=== PATIENT | female | born 1990 | race Caucasian/White ===

== ENCOUNTER 2017-07-17 23:03 | Inpatient (IN) | payer MEDICAID ==
[~2017-07-17] VITALS: Ht 177.8 cm; Wt 138.3 kg
[2017-07-18 00:35] VITALS: BP 149/86; PULSE 83; TEMP 97.9
[2017-07-18 00:46] LABS: BASO # 0.1 (0.0-0.2); BASO % 0.3 % (0.0-2.0); EOS # 0.1 (0.0-0.7); EOS % 0.6 % (0-4.0); GRAN % 70.8 % (42.2-75.2); HEMATOCRIT 39.5 % (37.0-47.0); HEMOGLOBIN 13.3 g/dl (12.5-16.0); LYMPH # 3.5 (1.2-3.4); LYMPH % 22.8 % (20.0-51.0); MEAN CELL VOLUME 89 fl (80.0-100.0); MEAN CORPUSCULAR HEMOGLOBIN 30 pg (27.0-31.0); MEAN CORPUSCULAR HGB CONC 34 g/dl (33.0-37.0); MEAN PLATELET VOLUME 9.8 fl (7.4-10.4); MONO # 0.8 (0.1-0.6); PLATELET COUNT 279 K/mm3 (130-400); RED BLOOD COUNT 4.45 M/mm3 (4.10-5.30); REDCELL DISTRIBUTION WIDTH-CV 13.2 % (11.5-14.5)
[2017-07-18 00:52] LABS: INR 0.9 (0.8-3.0); PROTHROMBIN TIME 10.3 SECONDS (9.7-12.8)
[2017-07-18 00:55] LABS: ALBUMIN 3.6 gm/dL (3.5-5.0); BILIRUBIN,TOTAL 0.2 mg/dL (0.0-1.0); CALCIUM 8.5 mg/dL (8.4-10.2); CREATININE, serum 0.75 mg/dL (0.52-1.25); POTASSIUM 3.7 mmol/L (3.4-5.0); TOTAL PROTEIN 7.1 gm/dL (6.4-8.2)
[2017-07-18 01:03] LABS: PRE ALBUMIN 26.6 mg/dL (17.6-36.0)
[2017-07-18] MEDS ORDERED: PROAIR HFA0.09 MG/AC IH (01:12)
[2017-07-18] MEDS ORDERED: ADIPEX-P37.5 MG PO (01:14)
[2017-07-18] MEDS ORDERED: KLOR-CON 1010 MEQ PO (01:15)
[2017-07-18] MEDS ORDERED: LASIX 40MG TABL40 MG PO (01:16)
[2017-07-18] MEDS ORDERED: PRINIVIL10 MG PO (01:17)
[2017-07-18] MEDS ORDERED: HCTZ12.5TAB PO (01:17)
[2017-07-18] MEDS ORDERED: PROTONIX 40MG T40 MG PO (01:18)
[2017-07-18] MEDS ORDERED: NORCO 325 MG-7.1 TAB PO (01:19)
[2017-07-18] MEDS ORDERED: ADVIL200 MG PO (01:20)
[2017-07-18] MEDS ORDERED: PROBIOTIC FORMU1 CAP PO (01:21)
[2017-07-18] MEDS ORDERED: PHARMASSURE ZIN50 MG PO (01:22)
[2017-07-18] MEDS ORDERED: IRON 27 MG PO (01:23)
[2017-07-18] MEDS ORDERED: B-121000 MCG PO (01:24)
[2017-07-18 04:14] LABS: MUCOUS Present /lpf; PH 6 (5-8); SQUAMOUS EPITHELIAL 0-2 /hpf; URINE APPEARANCE Clear; URINE BACTERIA None Seen /hpf; URINE BILIRUBIN Negative (NEGATIVE); URINE BLOOD Negative (NEGATIVE); URINE COLOR Yellow; URINE GLUCOSE Negative (NEGATIVE); URINE KETONE Negative (NEGATIVE); URINE LEUKOCYTE ESTERASE Negative (NEGATIVE); URINE NITRATE Negative (NEGATIVE); URINE PROTEIN(semi-quant) Negative (NEGATIVE); URINE RBC 0-2 /hpf; URINE UROBILINOGEN Negative (NEGATIVE)
[2017-07-18 04:39] LABS: COLLECTION METHOD CATHETER
[2017-07-18 05:39] VITALS: BP 148/91; PULSE 98; TEMP 98
[2017-07-18 10:23] VITALS: BP 143/80; BP 150/92; PULSE 83; TEMP 99.1
[2017-07-18 13:54] VITALS: BP 126/66; PULSE 102; TEMP 98.6
== END 2017-07-18 14:10 | disposition short-term general hospital (02) | DRG 536 ==
LOC: SURG 23:03
PROVIDERS: Nurse Practitioner Family
DX: S72.032A Displaced midcervical fracture of left femur, initial encounter for closed fracture (principal); Z68.41 Body mass index [BMI] 40.0-44.9, adult; W01.0XXA Fall on same level from slipping, tripping and stumbling without subsequent striking against object, initial encounter; E66.01 Morbid (severe) obesity due to excess calories; I10 Essential (primary) hypertension; J45.909 Unspecified asthma, uncomplicated; F17.210 Nicotine dependence, cigarettes, uncomplicated
CPT/HCPCS: 99232-AI; 99238; J2270